=== PATIENT | male | born 1955 | race Caucasian/White ===

== ENCOUNTER 2016-06-30 11:30 | Emergency (ER) | payer OTHER | END 2016-06-30 14:00 | disposition home or self-care (01) | LOC: ER 11:30 | DX: R07.2 Precordial pain (principal); M79.602 Pain in left arm; R51 Headache; I10 Essential (primary) hypertension; F17.210 Nicotine dependence, cigarettes, uncomplicated; Z79.82 Long term (current) use of aspirin; Z79.899 Other long term (current) drug therapy | CPT/HCPCS: 36415 ==